=== PATIENT | male | born 1985 | race Caucasian/White ===

== ENCOUNTER 2016-12-02 22:47 | Emergency (ER) | payer OTHER ==
[2016-12-02 23:22] VITALS: BP 112/70; PULSE 68; RESP 18; TEMP 98.6; O2SAT 98
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
== END 2016-12-03 01:20 | disposition home or self-care (01) ==
LOC: C.ER 22:47
DX: S63.502A Unspecified sprain of left wrist, initial encounter (principal); V49.40XA Driver injured in collision with unspecified motor vehicles in traffic accident, initial encounter; Y92.410 Unspecified street and highway as the place of occurrence of the external cause